=== PATIENT | male | born 1955 | race Caucasian/White ===

== ENCOUNTER 2019-03-29 18:57 | Emergency (ER) | payer MEDICARE ==
[~2019-03-29] VITALS: Ht 172.7 cm; Wt 95.7 kg
--- OUTSIDE RECORDS SUMMARY | 2019-03-29 19:00 | XMS REPORT | Summary of Care ---
Author Author [facility] Organization [facility] Address Unknown Phone Unavailable Care Team Providers Care Log Handling Equipment Operator Name Role Phone Salomón Cardenas MD, JESSICA PCP Vic Chang MD Unavailable Donn Bartlett MD 29 Spencer Ríos MD 28 Supplies, [facility] 34 Lenny Ayon MD Unavailable Unavailable Reason for Referral * Test (Routine) Referred By Contact Referred To Contact Status Reason Specialty Diagnoses / Procedures Salomón Cardenas MD, JESSICA [address] [phone] Pending Cardiology Diagnoses Autonomic neuropathy P rocedures STUDY TILT * Consult, Test & Treat (Routine) Referred By Contact Referred To Contact Status Reason Specialty Diagnoses / Procedures Salomón Cardenas MD, JESSICA [address] [address] [facility] [address] [place] [address]. 10th Floor, [place] [address] Pending Consult, Test, and Hand Surgery / Diagnoses Treat Orthopedic Trigger ring Surgery finger of right hand Pain of finger of right hand P rocedures [facility] OFFICE OUTPATIENT NEW 30 MINUTES * Test (Routine) Referred By Contact Referred To Contact Status Reason Specialty Diagnoses / Procedures Salomón Cardenas MD, JESSICA [address] [address] [facility] [address] [facility]. 8th Floor, [address] [place] [address] Pending Gastroenterology Diagnoses Screen for colon cancer P rocedures OPEN ACCESS COLONOSCOPY [facility] COLONOSCOPY W/BIOPSY SINGLE/MULTIPLE Reason for Visit * Reason Comments Results X-ray Medication Question Encounter Details Care Team Description Date Type Department Salomón Cardenas MD, JESSICA [address] [facility] [address] [place], [place] [id number] Results (X-ray); Medication Question 01/14/2019 Office Visit [facility] General Internal Medicine [address] [facility]. 8th Floor; [address] [place] [address] Allergies No Known Allergiesdocumented as of this encounter (statuses as of 01/14/2019) Medications End Date Status Medication Sig Dispensed Refills Start Date Active Prasugrel HCl (EFFIENT) Take by 0 10 MG TABS mouth daily. Active nitroglycerin (NITROSTAT) Place 0.4 mg 0 0.4 MG SL tablet under the tongue every [address] one tablet under the tongue for angina/chest pain. Repeat every 5 minutes for a total of three pills in 15 minutes for persistent chest pain. Active Insulin Pen Needle 30G X Use daily 100 Each 4 8 MM MISC with Lantus 3 Solostar Active fluticasone (FLONASE) 50 1 [place] by 0 MCG/ACT nasal spray Nasal route 4 daily. Active Cyanocobalamin (VITAMIN Place under 0 B-12) 2500 MCG SUBL the tongue. Active Cholecalciferol (VITAMIN Take by 0 D3) 2000 UNITS CAPS mouth. Active aspirin EC 81 MG tablet Take 81 mg by 0 mouth daily. Active LEVEMIR FLEXTOUCH 100 70 Units 90 mL 3 UNIT/ML SOPNIndications: nightly. 7 Type 2 diabetes mellitus treated with insulin (HCCode) Active Glucose Blood Strips (ONE Check glucose 400 Strip 3 TOUCH ULTRA 4 times 7 TEST)Indications: daily. Dx Uncontrolled type 2 code:E11.9 diabetes mellitus with insulin therapy (HCCode) Active fluocinonide (LIDEX) 0.05 Apply 60 mL 3 % external topically to 8 solutionIndications: affected Dermatitis seborrheica areas 2x/day 3 wks on 1 wk off taper freqency as tolerated Active omeprazole (PRILOSEC) 20 Take 20 mg by 0 MG capsule mouth daily. Active Tamsulosin HCl 0.4 MG Take 0.4 mg 90 Cap 3 CAPSIndications: Benign by mouth 8 prostatic hyperplasia daily. Active glipiZIDE (GLIPIZIDE XL) Take 1 Tab by 90 Tab 3 5 MG CR tablet mouth daily. 8 Active lisinopril (PRINIVIL, Take 20 mg by 0 ZESTRIL) 20 MG tablet mouth daily. Active escitalopram (LEXAPRO) 5 TAKE 1 TABLET 90 Tab 1 MG tabletIndications: BY MOUTH 9 Anxiety EVERY DAY Active ketoconazole (NIZORAL) 2 APPLY TO 120 mL 1 % shampooIndications: SCALP 2-5 9 Dermatitis seborrheica TIMES A WEEK LATHER INTO SCALP LEAVE FOR 5 MINS THEN RINSE OFF Active indomethacin (INDOCIN) 25 TAKE ONE 90 Cap 3 MG capsule CAPSULE BY 9 MOUTH 3 TIMES A DAY Active levothyroxine (SYNTHROID) TAKE 137 MCG 90 Tab 0 137 MCG BY MOUTH 9 tabletIndications: DAILY..CURTES Hypothyroidism (acquired) Y REFILL NO FURTHER REFILL WILL BE GIVEN WITH OUR AN APPOINTMENT Active meloxicam (MOBIC) 15 MG Take 1 Tab by 14 Tab 1 tabletIndications: mouth daily. 9 Chronic midline low back pain without sciatica Active metformin (GLUCOPHAGE) TAKE 2 TABS 360 Tab 1 500 MG tabletIndications: BY MOUTH 2 9 Type 2 diabetes mellitus TIMES DAILY treated with insulin (WITH MEALS). (HCCode) Active rosuvastatin (CRESTOR) 10 Take 10 mg by 0 MG tablet mouth daily. Active Na Sulfate-K Sulfate-Mg Take as 354 mL 1 Sulf (SUPREP BOWEL PREP directed 9 KIT) 17.5-3.13-1.6 GM/177ML SOLNIndications: Screen for colon cancer 01/14/2019 Discontinued docusate sodium (COLACE) Take 50 mg by 0 50 MG capsule mouth two times daily. 01/14/2019 Discontinued rosuvastatin (CRESTOR) 10 Take 1 Tab by 90 Tab 3 MG tablet mouth daily. 2 01/14/2019 Discontinued cyclobenzaprine Take 1 Tab by 30 Tab 1 (FLEXERIL) 10 MG tablet mouth 3 times 8 daily as needed for Muscle spasms. documented as of this encounter (statuses as of 01/14/2019) Active Problems Problem Noted Date DISH (diffuse idiopathic skeletal hyperostosis) 01/14/2019 Last Assessment & Plan: Diagnosis based on x-ray results today. - Discussed results - Discussed starting PT. Pt declined at this time. Will consider in future if needed. Trigger ring finger of right hand 01/14/2019 Last Assessment & Plan: - referral to Ortho Chronic midline low back pain without sciatica 12/18/2018 Last Assessment & Plan: Likely related to muscle strain, but also arthritis a potential component. - Flexeril PRN - discussed possible SEs - Meloxicam 15mg x 14 days, ok to repeat course once if needed, discussed possible SEs. - X-ray today - Discussed increasing physical activity, and provided with home exercises [facility] 04/23/2018 Cerebral infarction due to occlusion of precerebral artery [facility] 04/23/2018 PAD (peripheral artery disease) [facility] 04/23/2018 Acute bilateral low back pain without sciatica 04/23/2018 Last Assessment & Plan: - Limit NSAIDs - Tylenol PRN - Flexeril at night Gait instability 04/23/2018 Last Assessment & Plan: No improvement. - Tilt test ordered, as pt not able to complete due to acute medical issues. Type 2 diabetes mellitus treated with insulin (HCCode) 01/01/2018 Last Assessment & Plan: POC A1c today 8.9. Significant worsening. Compliant with medications. - Referral placed to Endocrine for optimization of diabetic control. - Increase levemir to 75 units for now given hypoglycemic episodes, but will likely need more intensification and optimization in future - Discussed importance of routine follow-up for diabetic control Left shoulder pain 01/01/2018 Last Assessment & Plan: More c/w bursitis - Recommended Tylenol PRN Syncope 08/20/2017 Last Assessment & Plan: Significant improvement. No signs thus far of seizure or cardiac ischemia. - Updated medication list - Pt to f/u with neurology regarding lacunar infarct seen on inpatient imaging. Lacunar infarction 08/20/2017 Last Assessment & Plan: - He will follow up with Neurology Memory deficit 06/26/2017 Last Assessment & Plan: Metabolic vs vascular. - Lab testing today - Consider imaging - Will refer to Neurology once above issues are addressed and if does not resolve with adjustment or SSRI Left-sided headache 06/26/2017 Last Assessment & Plan: Better controlled. Taking Indocin. Would like to lower to twice per day. - Agree with decreasing frequency if remains controlled - Recommend continue improved sleep habits - Follow up with neurology Left hand weakness 06/26/2017 Last Assessment & Plan: Intermittent. Normal today - lab testing today - Neurology referral Adjustment disorder with mixed anxiety and depressed mood 04/17/2017 Last Assessment & Plan: Improved, though stressors still present. - Decrease lexapro to 5mg - f/u in 2-3 months Routine adult health maintenance 03/19/2016 Overview: Last Annual Physical: 04/2018 - Colon Cancer Screening: Colonoscopy ordered, bt not done. He will f/u with Dr. Tobar next week regarding other GI issues. Will revisit at next visit. FIT ordered. - Prostate Cancer Screenin.1 in 2015. Repeat next year - Skin Cancer Prevention: Followed by Dr. Cassidy. - Vaccinations: - Flu: received 04/2018 - Pneumovax: received 04/2018 - Prevnar: discuss at age 66 - Tetanus: received in 2005 - Zoster: will check with pharmcy - AAA Screen: reports that he has never smoked. - HIV Status Testing (<65): negative in 2016 - Hep C Testing (born 1944-65): negative in 2016 Shortness of breath 03/19/2016 Last Assessment & Plan: - Will pursue PFTs given that prior work up was negative. Left hip pain 03/19/2016 Last Assessment & Plan: Suspect arthritis. - X-ray ordered. - Conservative management for now. LLQ pain 12/19/2015 Last Assessment & Plan: Most consistent with benign causes, but will pursue colonoscopy since screening due soon anyway. - Colonoscopy ordered Type 2 diabetes mellitus without retinopathy (HCCode) 11/27/2015 Observation for other specified suspected conditions 11/21/2014 Muscle cramps at night 09/06/2014 Last Assessment & Plan: - Discussed increasing water intake - Discussed stretching - Provided handout for home activities Fatigue 09/06/2014 Last Assessment & Plan: - Improved Hypertrophy of prostate with urinary obstruction and other lower urinary 04/18/2011 tract symptoms (LUTS) Erectile dysfunction 04/18/2011 Male hypogonadism 04/18/2011 Last Assessment & Plan: May be contributor to fatigue. - Recheck Testosterone level. Rotator cuff injury 11/08/2010 Last Assessment & Plan: Controlled with exercises. He does not feel the need to see ortho or PMR at this time GERD 07/21/2006 Obstructive sleep apnea 06/11/2005 Overview: CPAP Hypercholesterolemia Essential hypertension, benign Last Assessment & Plan: Controlled today - Adjusted med list Obesity Last Assessment & Plan: - Discussed improved exercise regimen for weight loss MANISH (obstructive sleep apnea) Last Assessment & Plan: 2004 at [employer]- AHI 43, SaO2 zhane 84%. Titrated to CPAP 13, but AHI at this pressure reported to be 14. 9/13- Re-titration- prescribed Autopap 02-16 with A flex -3 09/15- down load data is from 06/17-09/14 (his SD card had popped out)- Used it 52% of nights. Av use 6 hours. 90th percentile pressure 11.3 SD card replaced properly into his CPAP machine Pt encouraged to use CPAP daily Things we can optimize: - Would like to tray another nasal mask - Nasal congestion- Flonase is helping documented as of this encounter (statuses as of 01/14/2019) Resolved Problems Problem Noted Date Resolved Date Tachycardia 03/19/2016 04/23/2018 Last Assessment & Plan: - EKG today DM2 (diabetes mellitus, type 2) (HCCode) 12/01/2011 02/18/2013 Compression fracture 10/03/2011 10/14/2011 Lumbar strain 10/01/2011 10/14/2011 DIABETES MELLITUS, MILD 01/18/2010 Overview: A1c 6.4 documented as of this encounter (statuses as of 01/14/2019) Immunizations Name Administration Dates Next Due Influenza (Preservative 02/18/2013 Free) Influenza Intradermal 03/19/2016 Influenza Quad-PF 01/14/2019, 04/23/2018, 04/17/2017 Pneumococcal 04/23/2018, 08/29/2005 Polysaccharide Td 08/29/2005 documented as of this encounter Social History Date Tobacco Use Types Packs/Day Years Used Never Smoker Smokeless Tobacco: Never Used Drinks/Week oz/Week Comments Alcohol Use beer once a month Yes Sex Assigned at Date Recorded Not on file Industry Job Start Date Occupation Not on file Not on file Not on file Travel End Travel History Travel Start No recent travel history available. documented as of this encounter Last Filed Vital Signs Reading Time Taken Comments Vital Sign 134/64 01/14/2019 3:06 PM CDT Blood Pressure 73 01/14/2019 3:06 PM CDT Pulse 36.7 C (98.1 F) 01/14/2019 3:06 PM CDT Temperature 16 01/14/2019 3:06 PM CDT Respiratory Rate 96% 01/14/2019 3:06 PM CDT Oxygen Saturation - - Inhaled Oxygen Concentration 98.7 kg (217 lb 9.6 oz) 01/14/2019 3:06 PM CDT Weight 172.7 cm (5' 8") 01/14/2019 3:06 PM CDT Height 33.09 01/14/2019 3:06 PM CDT Body Mass Index documented in this encounter Patient Instructions * Patient Instructions* Salomón Cardenas MD, JESSICA - 01/14/2019 3:00 PM CDT 1) Please let me know if you would like to pursue Physical Therapy for your back pain 2) Colonoscopy Instructions Please call [phone] to schedule your procedure and have this List with you. Day Date ArrivalTime Procedure Time Locations [facility] [address] [facility] 4th Floor [facility] [address] [facility] [address] [facility] 9th [place] [address] [facility] [address] [facility] 1st [place] [address] [facility] [address]th [place] [address] Important Phone Numbers Before calling, please see the Frequently Asked Germánio ns below. [facility] Insurance questions: [phone] [facility] Insurance questions: [phone], option 5 For prep information: [phone] To reschedule/cancel your procedure: [phone] After hour questions, including prep related: [phone] Ananda Bucio COLONOSCOPY TO DO LIST HOLD Anticoagulants and Antiplatelet Medications To reduce risk of bleeding, 'blood thinning' medications need to be held for the upcoming procedure. Look for your prescription below and hold for the recommen ded number of days. Please check with your doctor BEFORE stopping any medications Note: You may continue to take baby aspirin (81mg) until the day of your procedu re Manage through you doctor or anticoagulation clinic Warfarin (Coumadin) Enoxaparin (Lovenox) STOP 7 days BEFORE the procedure Aspirin Aspirin/Dipyridamole (Aggrenox) Clopidogrel (Plavix) Pasugrel (Effient) Ticlopidine (Ticlid) Ticagrelor (Brilinta) STOP 3 days BEFORE the procedure Apixaban (Eliquis) Dabigatran (Pradaxa) Rivaroaxaban (Xarelto) STOP 2 days BEFORE the procedure Fondaparinux (Arixtra) Cilostazol (Pletal) 7 DAYS BEFORE THE PROCEDURE ? If your provider has instructed, obtain cardiac clearance from your cardiologi st and confirm that clearance has been faxed to our office ( ). ? If your provider has instructed, please stop use of medications that can thin your blood - see above ? Sign up for [facility] [email or web address] All results including biopsy and / or polyp(s) removed will be communicated via [email or web address]. ? building insulation supervisor your bowel cleansing preparation from your pharmacy. ? Arrange transportation for the day of your procedure an escort is needed a s you will be sedated for the exam. THE DAY BEFORE THE PROCEDURE ? Please ignore the gnore the instructions provided with your bowel preparation ? Follow the steps in the Bowel Prep Instruction section below for your prescrib ed prep. ? You are restricted to ONLY CLEAR LIQUIDS. No solid foods or food with seeds/nu ts. No dairy and no liquids that are red, orange, or purple in color. This inclu belia breakfast. ? Examples of acceptable foods / liquids are plain broth, jello, popsicles, tea, clear juices and carbonated drinks. No vegetable soup. THE DAY OF THE PROCEDURE ? You cannot consume any food or drink (including water) ? You may brush your teeth and rinse your mouth. ? Take all medications as directed by your doctor with a small sip of water. ? Bring your identification card, insurance card, and method of payment. ? Leave all other valuables at home. ? You CANNOT drive yourself from the procedure. Use of bus, taxi or Uber without an escort is not allowed for safety reasons. ? Arrive for check-in at least 90 minutes before your procedure time. Allow jocelyn tional time for parking and navigation to the procedure location. BOWEL PREP INSTRUCTIONS Follow the instructions below for the bowel prep you were prescribed. Do NOT fo llow the instructions on the prep packaging. Please call [phone] if you murrell ve any questions about either prep. SUPREP THE DAY BEFORE YOUR PROCEDURE AT 6:00PM ? Pour ONE 6 ounce bottle of Suprep liquid into the 16 ounce mixing container in the kit ? Add cool drinking water to the 16 ounce line on the container with the mix. St ir. ? Drink all the liquid in the container ? You must drink TWO more 16 ounce containers (total of 32 ounces) of water over the next hour FOUR HOURS BEFORE YOU LEAVE YOUR HOME FOR THE PROCEDURE ? Pour ONE 6 ounce bottle of Suprep liquid into the 16 ounce mixing container in the kit ? Add cool drinking water to the 16 ounce line on the container with the mix. St ir. ? Drink all the liquid in the container ? You must drink TWO more 16 ounce containers (total of 32 ounces) of water over the next hour GOLYTELY THE DAY BEFORE YOUR PROCEDURE AT 6:00PM ? Add cold water to fill the gallon container. You may flavor the gallon with cr ystal light as long as it is not red/purple in color. ? Drink of the gallon (2 liters) over 2 hours. ? Drink the remaining half gallon (2 liters) over 90 minutes. FOUR HOURS BEFORE YOU LEAVE YOUR HOME FOR THE PROCEDURE ? Drink the remaining half gallon (2 liters) over 90 minutes. Colonoscopy Frequently Asked Questions What is a colonoscopy? A colonoscopy is a procedure that involves introducing a thin flexible tube with a camera to evaluate the colon for abnormalities. A Colonoscopy is considered the best option to screen for colon cancer and to re move colon polyps. A Colonoscopy is performed under sedation. How do I schedule a colonoscopy? Please call [phone] to schedule your procedure. Please be sure to check bef orehand with your designated trackless trolley driver (use of taxis, uber, lyft, etc are not permi tted) for possible dates. How much will the colonoscopy cost met? You will receive a call from the insurance department of [facility] AND [facility] ([facility]) in 10 to 14 business days AFTER you schedule your colonoscopy if your paymen t is above $100. What can I eat the day before the colonoscopy? The entire day before the procedure (including breakfast), you are restricted to clear liquids. This means nothing that has any solid residue. Liquids that are acceptable are water, plain/strained broth, jello, popsicles, and clear carbonat ed drinks. Avoid any liquids that are red/orange in color. Milk products are not allowed. P cal do NOT eat any vegetables, seeds, and nuts as these will cause poor visual ization of the colon. Preparation is a critically important part of the exam. If your bowel is not nolberto quately cleaned out before the exam, your doctor will not be able to identify po lyps and may request a repeat examination. Tips for drinking the bowel preparation Refrigerating the mixed liquid bowel preparation may help you ingest easier. Do not force yourself to drink all the fluid at once. Pace yourself. Try hard/tart candies or lemon to help with the taste. What if I experience nausea or vomit the bowel preparation? Nausea is common, do not panic if this occurs. Stop drinking the solution for 45 to 60 minutes, and then resume. Pace yourself slower when drinking the bowel pr eparation. If vomiting continues for several hours please call your doctor. What should I wear for the day of the procedure? Please dress comfortably. You will be asked to change into a hospital gown and r emove all undergarments. What should I bring with me the day of the procedure? Please bring your identification card, insurance card, and method of payment. Pl ease do not bring any other valuables with you. [facility] (or [facility] the procedure is performed) will NOT be responsible for your v aluable items. Can I take my medications the day of the procedure? You should take all your medications (except those listed as specified in the in structions) with small sips of water. Please refrain from drinking excessive flu id while taking your medications as this will place you at risk for anesthesia c omplications. How long will the process take? A typical procedure usually takes 30 to 45 minutes. However, there are many aspe cts to ensuring your health and safety. Time is needed for registration, intake assessment, changing, the procedure, and recovery. Please plan to be at the [facility] for at least 3-4 hours. What happens if a polyp is found in the colon? During the course of the colonoscopy, polyp(s) may be found. Polyps are abnormal growths of tissue, which vary in size. Although most polyps are benign (noncanc erous), a small percentage contain an area of cancer in them or may develop into cancer. They are usually removed during the procedure. Pathology results will be sent via [facility] [employer]. When will I receive results? You will receive a copy of the procedure report on the same day in your discharg e package. If biopsies were taken, they will be sent via [facility] 7 business days after your procedure. What symptoms might occur after the colonoscopy? Most patients do not experience any symptoms. Some may experience excessive gas, abdominal pain/cramping, and/or slight rectal bleeding after the procedure. The se symptoms usually resolve within a day with no need to be alarmed. If you expe rience excessive bleeding, fever, or severe symptoms please call the gastroenter ology office or report to the nearest emergency room for evaluation. What can I eat after the procedure? We suggest that the first meal be a light meal as you may have residual effects of anesthesia. However, there are no specific dietary exclusions unless you are instructed by your provider. What can I do after the procedure? Most procedures are done using anesthesia. You will not be allowed to drive afte r the procedure. It is not advised to make any important decisions the day of yo ur procedure. Please make sure you have someone to drive you home after the proc edure. The use of taxis, UBER, and Lyft are not permitted by our policies. Self- arranged medical transportation is acceptable. We recommend you plan on taking it easy for the remainder of the day. There are no restrictions the following day, including driving C DT documented in this encounter Progress Notes * Salomón Cardenas MD, JESSICA - 01/14/2019 3:00 PM CDT Chief Complaint Patient presents with Results X-ray Medication Question History of Present Illness: Mr. Alaniz is a 63 y.o. year old male who presents for follow up of: At last visits, discussed: Back pain X-ray showed DISH. Reports significant improvement with Meloxicam Finger "Sticking" Reports lack of improvement. Same level of pain. Worse when he tries to extend h is hand. "Pops" into place on extension of 4th finger. Reports meloxicam had donna y minimal improvement on his hand. Gait abnormalities Unchanged. Has continued to have some instability recently. Seen by neurology in the past about this, but was unable complete testing. Diabetes Under better control. Compliant with medications. Following with endocrine. Past Medical History: Diagnosis Date BPH (benign prostatic hyperplasia) Coronary artery disease 4 total stents, Dr. Bartlett Diabetes mellitus (HCCode) GERD (gastroesophageal reflux disease) Hearing loss bilateral; ? noise induced Hyperlipemia Hypertension Hypogonadism male Hypothyroidism MANISH (obstructive sleep apnea) Rotator cuff tear, left Dr. Walter Addison, Ortho- PT Family History Problem Relation Name Age of Onset Glaucoma Mother Breast Cancer Mother Cancer Father Other (throat cancer) Father Epilepsy Brother Social History: Tobacco: He reports that he has never smoked. He has never used smokeless tobac co. Alcohol: He reports that he drinks alcohol. Drug Use: He reports that he does not use drugs. Past Surgical History: Procedure Laterality Date HX ANUS SURGERY 2003 For fistula HX CORONARY ANGIOPLASTY WITH STENT PLACEMENT 2013 Dr. Bartlett Current Outpatient Medications on File Prior to Visit Medication Sig Dispense Refill aspirin EC 81 MG tablet Take 81 mg by mouth daily. Cholecalciferol (VITAMIN D3) 2000 UNITS CAPS Take by mouth. Cyanocobalamin (VITAMIN B-12) [address] under the tongue. cyclobenzaprine (FLEXERIL) 10 MG tablet Take 1 Tab by mouth 3 times daily as needed for Muscle spasms. (Patient not taking: Reported on 12/17/2018) 30 Tab 1 docusate sodium (COLACE) 50 MG capsule Take 50 mg by mouth two times daily. escitalopram (LEXAPRO) 5 MG tablet TAKE 1 TABLET BY MOUTH EVERY DAY 90 Tab 1 fluocinonide (LIDEX) 0.05 % external solution Apply topically to affected ar eas 2x/day 3 wks on 1 wk off taper freqency as tolerated 60 mL 3 fluticasone (FLONASE) 50 MCG/ACT nasal spray 1 [place] by Nasal route daily. glipiZIDE (GLIPIZIDE XL) 5 MG CR tablet Take 1 Tab by mouth daily. 90 Tab 3 Glucose Blood Strips (ONE TOUCH ULTRA TEST) Check glucose 4 times daily. Dx code:E11.9 400 Strip 3 indomethacin (INDOCIN) 25 MG capsule TAKE ONE CAPSULE BY MOUTH 3 TIMES A DAY (Patient not taking: Reported on 12/17/2018) 90 Cap 3 Insulin Pen Needle 30G X 8 MM MISC Use daily with Lantus Solostar 100 Each 4 ketoconazole (NIZORAL) 2 % shampoo APPLY TO SCALP 2-5 TIMES A WEEK LATHER IN TO SCALP LEAVE FOR 5 MINS THEN RINSE OFF 120 mL 1 LEVEMIR FLEXTOUCH 100 UNIT/ML SOPN 70 Units nightly. (Patient taking differe ntly: 75 Units nightly.) 90 mL 3 levothyroxine (SYNTHROID) 137 MCG tablet TAKE 137 MCG BY MOUTH DAILY..CURTES Y REFILL NO FURTHER REFILL WILL BE GIVEN WITH OUR AN APPOINTMENT 90 Tab 0 lisinopril (PRINIVIL, ZESTRIL) 20 MG tablet Take 20 mg by mouth daily. meloxicam (MOBIC) 15 MG tablet Take 1 Tab by mouth daily. 14 Tab 1 metformin (GLUCOPHAGE) 500 MG tablet TAKE 2 TABS BY MOUTH 2 TIMES DAILY (WIT H MEALS). 360 Tab 1 nitroglycerin (NITROSTAT) 0.[address] 0.4 mg under the tongue sarah ry 5 minutes as needed. Place one tablet under the tongue for angina/chest pain. Repeat every 5 minutes for a total of three pills in 15 minutes for persistent chest pain. omeprazole (PRILOSEC) 20 MG capsule Take 20 mg by mouth daily. Prasugrel HCl (EFFIENT) 10 MG TABS Take by mouth daily. rosuvastatin (CRESTOR) 10 MG tablet Take 1 Tab by mouth daily. 90 Tab 3 Tamsulosin HCl 0.4 MG CAPS Take 0.4 mg by mouth daily. 90 Cap 3 No current facility-administered medications on file prior to visit. Review of Systems Constitutional: Negative for chills, fever and weight loss. HENT: Negative for congestion and sinus pain. Eyes: Negative for blurred vision, double vision, pain and redness. Respiratory: Negative for cough and wheezing. Cardiovascular: Negative for chest pain, palpitations and leg swelling. Gastrointestinal: Negative for abdominal pain, constipation, diarrhea, nausea an d vomiting. Genitourinary: Negative for dysuria, frequency and hematuria. Skin: Negative for rash. Neurological: Negative for tremors, focal weakness and headaches. Endo/Heme/Allergies: Does not bruise/bleed easily. Psychiatric/Behavioral: Negative for depression. The patient is not nervous/anxi ous. Vitals: 01/14/19 1506 BP: 134/64 BP Location: left arm Patient Position: Sitting Cuff Size: large Pulse: 73 Resp: 16 Temp: 98.1 F (36.7 C) TempSrc: Oral SpO2: 96% Weight: 217 lb 9.6 oz (98.7 kg) Height: 5' 8" (1.727 m) Body mass index is 33.09 kg/m. Physical Exam Constitutional: He is oriented to person, place, and time and well-developed, we ll-nourished, and in no distress. No distress. HENT: Head: Normocephalic. Eyes: Conjunctivae and EOM are normal. Neck: Normal range of motion. Neck supple. Pulmonary/Chest: Effort normal. No respiratory distress. Musculoskeletal: Normal range of motion. He exhibits no edema. Neurological: He is alert and oriented to person, place, and time. No cranial ne rve deficit. Gait normal. Coordination normal. Skin: Skin is warm and dry. No erythema. Psychiatric: Mood, memory, affect and judgment normal. Assessment Gait instability No improvement. - Tilt test ordered, as pt not able to complete due to acute medical issues. DISH (diffuse idiopathic skeletal hyperostosis) Diagnosis based on x-ray results today. - Discussed results - Discussed starting PT. Pt declined at this time. Will consider in future if ne eded. Trigger ring finger of right hand - referral to Ortho Problem [facility] (Diffuse Idiopathic Skeletal Hyperostosis) Trigger Ring Finger of Right Hand Gait Instability Plan (and orders) Orders Placed This Encounter Procedures Open Access Colonoscopy Fluzone Quad - Preservative FREE AMB REFERRAL TO HAND SURGERY [facility] Study tilt C DT documented in this encounter Plan of Treatment Care Team Description Date Type Specialty Lola Montenegro MD [address] [place] [address] [address] [place], [place] [id number] 02/23/2019 Office Visit Ophthalmology Junior Hutchinson MD [address] [facility] [address] [place], [place] [id number] 04/01/2019 Office Visit Endocrinology Renae Lakhani RN 05/03/2019 Office Visit General Internal Medicine Priscilla Travis MD [address] [facility] [address] [place], [place] [id number] 06/08/2019 Office Visit Sleep Center Order Schedule Name Type Priority Associated Diagnoses 1 Occurrences starting 01/14/2019 until 07/15/2019 OPEN ACCESS COLONOSCOPY Procedures Routine Screen for colon cancer 1 Occurrences starting 01/14/2019 until 01/15/2020 STUDY TILT Electrophysiolo Routine Autonomic neuropathy gy Order Schedule Name Type Priority Associated Diagnoses Ordered: 01/14/2019 AMB REF TO HAND SURGERY Outpatient Routine Trigger ring finger of [facility] Referral right hand Pain of finger of right hand Health Maintenance Due Date Last Done Comments COLON CANCER SCREENIN1956 COLONOSCOPY TETANUS SHOT (ADULT) 08/30/2015 08/29/2005 MEDICARE AWV 04/17/2018 04/17/2017 FLU VACCINE > 6 MONTHS 12/02/2018 04/23/2018, 04/17/2017, 03/19/2016, Additional history exists ANNUAL DIABETIC 03/10/2019 03/10/2018, 03/10/2018, 11/27/2015, RETINOPATHY SCREENING Additional history exists ANNUAL DIABETIC FOOT EXAM 04/23/2019 04/23/2018, 01/01/2018, 12/19/2015 BMI FOLLOW UP PLAN 04/23/2019 04/23/2018 A1C TESTING EVERY 6 06/17/2019 12/15/2018, 04/16/2018, 01/01/2018, MONTHS Additional history exists HEPATITIS C SCREENING Completed 03/26/2016 HIV SCREENING Completed 03/26/2016 documented as of this encounter Results Not on filedocumented in this encounter Visit Diagnoses Diagnosis DISH (diffuse idiopathic skeletal hyperostosis) - Primary Ankylosing vertebral hyperostosis Trigger ring finger of right hand Trigger finger (acquired) Screen for colon cancer Special screening for malignant neoplasms, colon Autonomic neuropathy Unspecified disorder of autonomic nervous system Pain of finger of right hand Pain in limb Need for influenza vaccination Need for prophylactic vaccination and inoculation against influenza Gait instability Abnormality of gait documented in this encounter Insurance Type Payer Benefit Subscriber ID Effective Phone Address Plan / Dates Group Medicare MEDICARE MEDICARE xxxxxxxxxxx 2013- [address] Present [id number] [place] [address] documented as of this encounter Advance Directives Patient Line Out Worker Explanation Type Date Recorded Advance Directives and Living Will Power of Marketing Rep
--- OUTSIDE RECORDS SUMMARY | 2019-03-29 19:00 | XMS REPORT | Summary of Care ---
Author Author [facility] Organization [facility] Address Unknown Phone Unavailable Care Team Providers Care Diesel Engine Inspector Name Role Phone Salomón Cardenas MD, JESSICA PCP Vic Chang MD Unavailable Donn Bartlett MD [address] Spencer Ríos MD 28 Supplies, [facility] 34 Lenny Ayon MD Unavailable Unavailable Reason for Visit * Reason Comments Hand Injury * Consult, Test & Treat (Routine) Referred By Contact Referred To Contact Status Reason Specialty Diagnoses / Procedures Salomón Cardenas MD, JESSICA [address] [facility] [address] [place] [address] [facility] [address], [facility] [address] [place] [address] Authorization Consult, Test, and Orthopedic Diagnoses Not Needed Treat Surgery Trigger ring finger of right hand Pain of finger of right hand M65.341 (ICD-10-CM) - Trigger ring finger of right hand M79.644 (ICD-10-CM) - Pain of finger of right hand P rocedures [place] OFFICE OUTPATIENT NEW 30 MINUTES Encounter Details Care Team Description Date Type Department Wayne Salazar MD [address] [facility] [address] [place] [address] [phone] Hand Injury 02/03/2019 Office Visit [facility] Orthopedic Surgery [address] [facility]. [address], [place] [address] Allergies No Known Allergiesdocumented as of this encounter (statuses as of 02/03/2019) Medications End Date Status Medication Sig Dispensed [...] 3 Solostar Active fluticasone (FLONASE) 50 1 [place] by 0 MCG/ACT nasal spray Nasal route [...] by 0 MG capsule mouth daily. Active glipiZIDE (GLIPIZIDE XL) Take 1 [...] 17.5-3.13-1.6 GM/177ML SOLNIndications: Screen for colon cancer Active Tamsulosin HCl 0.4 MG TAKE ONE 90 Cap 3 CAPSIndications: Benign CAPSULE BY 9 prostatic hyperplasia MOUTH EVERY DAY AT BEDTIME documented as of this encounter (statuses as of 02/03/2019) Active Problems Problem Noted Date DISH (diffuse [...] activity, and provided with home exercises Dysautonomia (HCCode) 04/23/2018 Cerebral infarction due to occlusion of precerebral artery (HCCode) 04/23/2018 PAD [facility]peripheral artery disease) [facility] 04/23/2018 Acute bilateral low back pain without sciatica 04/23/2018 Last Assessment & Plan: - Limit NSAIDs - Tylenol PRN - Flexeril at night Gait instability 04/23/2018 Last Assessment & Plan: No improvement. - Tilt test ordered, as pt not able to complete due to acute medical issues. Type 2 diabetes mellitus treated with insulin ([facility] 01/01/2018 Last Assessment & Plan: POC A1c [...] infarct seen on inpatient imaging. Lacunar infarction ([facility]) 08/20/2017 Last Assessment & Plan: - He [...] - Skin Cancer Prevention: Followed by Dr. Khanh. - Vaccinations: - Flu: received 04/2018 - [...] apnea) Last Assessment & Plan: 2004 at [facility]- AHI 43, SaO2 zhane 84%. Titrated to CPAP 13, but AHI at this pressure reported to be 14. 9/13- Re-titration- prescribed Autopap - with A flex -3 09/15- down load [...] as of this encounter (statuses as of 02/03/2019) Resolved Problems Problem Noted Date Resolved Date Tachycardia 03/19/2016 04/23/2018 Last Assessment & Plan: - EKG today DM2 (diabetes mellitus, type 2) (HCCode) 12/01/2011 02/18/2013 Compression fracture 10/03/2011 10/14/2011 Lumbar strain 10/01/2011 10/14/2011 DIABETES MELLITUS, MILD 01/18/2010 Overview: A1c 6.4 documented as of this encounter (statuses as of 02/03/2019) Immunizations Name Administration Dates Next Due Influenza [...] Signs Reading Time Taken Comments Vital Sign 145/86 02/03/2019 9:35 AM CDT Blood Pressure 71 02/03/2019 9:35 AM CDT Pulse - - Temperature - - Respiratory Rate - - Oxygen Saturation - - Inhaled Oxygen Concentration 98.4 kg (217 lb) 02/03/2019 9:35 AM CDT Weight 172.7 cm (5' 8") 02/03/2019 9:35 AM CDT Height 32.99 02/03/2019 9:35 AM CDT Body Mass Index documented in this encounter Progress Notes * Wayne Salazar MD - 02/03/2019 9:30 AM CDT History of Present Illness Stas Alaniz is a 64 y.o. , male here for evaluation of his R RF. Patient reports that it started 3mo ago when he noti pratima that his finger would get stuck when he wakes up in the morning. He reports that it clicks when he uses it and is associated with pain. Denies any tingling, numbness, or trauma. Past Medical History has a past medical history of BPH (benign prostatic hype rplasia), Coronary artery disease, Diabetes mellitus (HCCode), GERD (gastroesoph ageal reflux disease), Hearing loss, Hyperlipemia, Hypertension, Hypogonadism ma le, Hypothyroidism, MANISH (obstructive sleep apnea), and Rotator cuff tear, left. Hospitalizations and Surgeries: has a past surgical history that includes HX A nus surgery (2003) and HX Coronary angioplasty with stent (2013). Medical Problems: Denies cardiovascular, pulmonary, renal or hepatic disease. No history of HIV/AIDS Medicines: Current Outpatient Medications: aspirin EC 81 MG tablet, Take 81 mg by mouth daily., Disp: , Rfl: Cholecalciferol (VITAMIN D3) 2000 UNITS CAPS, Take by mouth., Disp: , Rfl: Cyanocobalamin (VITAMIN B-12) 2500 [address]CG SUBL, Place under the tongue., Disp : , Rfl: escitalopram (LEXAPRO) 5 MG tablet, TAKE 1 TABLET BY MOUTH EVERY DAY, Disp: 90 Tab, Rfl: 1 fluocinonide (LIDEX) 0.05 % external solution, Apply topically to affected areas 2x/day 3 wks on 1 wk off taper freqency as tolerated, Disp: 60 mL, Rfl: 3 fluticasone (FLONASE) 50 MCG/ACT nasal spray, 1 [place] by Nasal route daily. , Disp: , Rfl: glipiZIDE (GLIPIZIDE XL) 5 MG CR tablet, Take 1 Tab by mouth daily., Disp: 90 Tab, Rfl: 3 Glucose Blood Strips (ONE TOUCH ULTRA TEST), Check glucose 4 times daily. D x code:E11.9, Disp: 400 Strip, Rfl: 3 indomethacin (INDOCIN) 25 MG capsule, TAKE ONE CAPSULE BY MOUTH 3 TIMES A D AY (Patient not taking: Reported on 12/17/2018), Disp: 90 Cap, Rfl: 3 Insulin Pen Needle 30G X 8 MM MISC, Use daily with Lantus Solostar, Disp: 1 00 Each, Rfl: 4 ketoconazole (NIZORAL) 2 % shampoo, APPLY TO SCALP 2-5 TIMES A WEEK LATHER INTO SCALP LEAVE FOR 5 MINS THEN RINSE OFF, Disp: 120 mL, Rfl: 1 LEVEMIR FLEXTOUCH 100 UNIT/ML SOPN, 70 Units nightly. (Patient taking diffe rently: 75 Units nightly.), Disp: 90 mL, Rfl: 3 levothyroxine (SYNTHROID) 137 MCG tablet, TAKE 137 MCG BY MOUTH DAILY..KRISTIN ESY REFILL NO FURTHER REFILL WILL BE GIVEN WITH OUR AN APPOINTMENT, Disp: 90 Tab , Rfl: 0 lisinopril (PRINIVIL, ZESTRIL) 20 MG tablet, Take 20 mg by mouth daily., Di sp: , Rfl: meloxicam (MOBIC) 15 MG tablet, Take 1 Tab by mouth daily., Disp: 14 Tab, R fl: 1 metformin (GLUCOPHAGE) 500 MG tablet, TAKE 2 TABS BY MOUTH 2 TIMES DAILY (W ITH MEALS)., Disp: 360 Tab, Rfl: 1 Na Sulfate-K Sulfate-Mg Sulf (SUPREP BOWEL PREP KIT) 17.5-3.13-1.6 GM/177ML SOLN, Take as directed, Disp: 354 mL, Rfl: 1 nitroglycerin (NITROSTAT) 0.4 MG SL tablet, Place 0.4 mg under the tongue e very 5 minutes as needed[address] one tablet under the tongue for angina/chest skyler n. Repeat every 5 minutes for a total of three pills in 15 minutes for persisten t chest pain. , Disp: , Rfl: omeprazole (PRILOSEC) 20 MG capsule, Take 20 mg by mouth daily., Disp: , Rf l: Prasugrel HCl (EFFIENT) 10 MG TABS, Take by mouth daily., Disp: , Rfl: rosuvastatin (CRESTOR) 10 MG tablet, Take 10 mg by mouth daily., Disp: , Rf l: Tamsulosin HCl 0.4 MG CAPS, TAKE ONE CAPSULE BY MOUTH EVERY DAY AT BEDTIME, Disp: 90 Cap, Rfl: 3 Allergies: No Known Allergies Review of Systems: Denies cardiovascular, pulmonary renal or hepatic complaints. No history of bleeding disorders. Social History: Does not drink or smoke. No history of illicit drug use. No h istory of HIV or blood transfusions. Family History: Noncontributory Physical Examination: General: Well-developed, well-nourished male in no acute distress. Vital Signs: Stable Examination: Left upper extremity General: Unremarkable, without swelling or scars. Shoulder: Full active range of motion without tenderness. Elbow: There is full active range of motion without tenderness. No swelling, cr epitus or epicondylar tenderness. Forearm: There is full pronation and supination without pain. Wrist: There is full active range of motion without tenderness, crepitus or ins tability. Hand: There is no clubbing, cyanosis or edema. Triggering of L RF noted assoc with swelling. The thenar and hypothenar muscles are functioning at 5/5. There is full active range of motion in all digits, with some limitation in the RF req passive. No ext tendon subluxation. X-Ray Left hand 3 views was reviewed by me today No bony or soft tissue abnorma lities. Impression: L RF trigger finger Recommendations and Plan: --> Discussed the natural history and range of treatment options including nonop to surgical to the patient. --> Given patient's concern about elevated glucose s/p injection, patient opted for using a night splint --> Patient understand the management of this dz is symptomatic. He will return if the splint does not achieve enough relief. At that point, we will consider an injection versus surgery. Patient verbalized understanding and agrees with the treatment plan documented in this encounter Plan of Treatment Care Team Description Date Type Specialty Lola Montenegro MD [address] [place] [address] [address] [place] [address] 02/23/2019 Office Visit Ophthalmology Junior Hutchinson MD [address] [facility] [address] [place] [address] 04/01/2019 Office Visit Endocrinology Renae Lakhani RN 05/03/2019 Office Visit General Internal Medicine Priscilla Travis MD [address] [facility] [address] [place], [place] [id number] 06/08/2019 Office Visit Sleep Center Date/Time Name Type Priority Associated Diagnoses 02/03/2019 9:41 AM CDT XR FINGER RIGHT < 2 VW Imaging Routine Finger pain, right Order Schedule Name Type Priority Associated Diagnoses 1 Occurrences starting 02/03/2019 until 02/04/2020 XR FINGER RIGHT < 2 VW Imaging Routine Finger pain, right Ordered: 02/03/2019 ORT - XR FINGER RIGHT 2V [place] Charge Routine Finger pain, right ( CHARGE ONLY) Health Maintenance Due Date Last Done Comments COLON CANCER SCREENIN1956 COLONOSCOPY TETANUS SHOT (ADULT) 08/30/2015 08/29/2005 MEDICARE AWV 04/17/2018 04/17/2017 ANNUAL DIABETIC 03/10/2019 03/10/2018, 03/10/2018, 11/27/2015, RETINOPATHY SCREENING Additional history exists ANNUAL DIABETIC FOOT EXAM 04/23/2019 04/23/2018, 01/01/2018, 12/19/2015 BMI FOLLOW UP PLAN 04/23/2019 04/23/2018 A1C TESTING EVERY 6 06/17/2019 12/15/2018, 04/16/2018, 01/01/2018, MONTHS Additional history exists HEPATITIS C SCREENING Completed 03/26/2016 HIV SCREENING Completed 03/26/2016 FLU VACCINE > 6 MONTHS Completed 01/14/2019, 04/23/2018, 04/17/2017, Additional history exists documented as of this encounter Results Not on filedocumented in this encounter Visit Diagnoses Diagnosis Finger pain, right - Primary Pain in limb Trigger finger, right ring finger documented in this encounter Insurance Type Payer Benefit Subscriber ID Effective Phone Address Plan / Dates Group Medicare MEDICARE MEDICARE xxxxxxxxxxx 2013- [address] Present [id number] [place] [address] documented as of this encounter Advance Directives Patient Loan Underwriter Explanation Type Date Recorded Advance Directives and Living Will Power of Sanding Line Operator
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
--- OUTSIDE RECORDS SUMMARY | 2019-03-29 19:01 | XMS REPORT | Summary of Care ---
Author Author [facility] Organization [facility] Address Unknown Phone Unavailable Care Team Providers Care Electronic Development Technician Name Role Phone Salomón Cardenas MD, JESSICA PCP Vic Chang MD Unavailable Donn Bartlett MD 29 Spencer Ríos MD 28 Supplies, [employer] 34 Lenny Ayon MD Unavailable Unavailable Nicki Ribera [place] 52 Unavailable Reason for Visit * Reason Comments Glaucoma Narrow angle glaucoma suspect OU * Consult, Test & Treat (Routine) Referred By Contact Referred To Contact Status Reason Specialty Diagnoses / Procedures Lola Montenegro MD [address] [address] Lola Montenegro MD [address] [address] Authorization Ophth Glaucoma Diagnoses Not Needed Specialist / eov annual Ophthalmology diabetic adv. no refraction P rocedures EOV W HVF Encounter Details Care Team Description Date Type Department Lola Montenegro MD [address] [phone] Glaucoma (Narrow angle glaucoma suspect OU) 02/23/2019 Office Visit [facility] Ophthalmology [address] [place] [phone] Allergies No Known Allergiesdocumented as of this encounter (statuses as of 02/23/2019) Medications End Date Status Medication Sig Dispensed [...] 3 Solostar Active fluticasone (FLONASE) 50 1 [facility] by 0 MCG/ACT nasal spray Nasal route [...] Type 2 diabetes mellitus [facility] with insulin [facility] Active Glucose Blood Strips (ONE Check glucose 400 Strip 3 TOUCH ULTRA 4 times 7 TEST)Indications: daily. Dx Uncontrolled type 2 code:E11.9 diabetes mellitus with insulin therapy ([facility]) Active fluocinonide (LIDEX) 0.05 Apply 60 mL [...] as of this encounter (statuses as of 02/23/2019) Active Problems Problem Noted Date DISH (diffuse [...] artery (H[facility]ode) 04/23/2018 PAD (peripheral artery disease) (HCCode) 04/23/2018 Acute bilateral low back pain without [...] infarct seen on inpatient imaging. Lacunar infarction [facility]) 08/20/2017 Last Assessment & Plan: - He [...] apnea) Last Assessment & Plan: 2005 at [place]- AHI 43, SaO2 zhane 84%. Titrated to [...] as of this encounter (statuses as of 02/23/2019) Resolved Problems Problem Noted Date Resolved Date Tachycardia 03/19/2016 04/23/2018 Last Assessment & Plan: - EKG today DM2 (diabetes mellitus, type 2) (HCCode) 12/01/2011 02/18/2013 Compression fracture 10/03/2011 10/14/2011 Lumbar strain 10/01/2011 10/14/2011 DIABETES MELLITUS, MILD 01/18/2010 Overview: A1c 6.4 documented as of this encounter (statuses as of 02/23/2019) Immunizations Name Administration Dates Next Due Influenza [...] of this encounter Last Filed Vital Signs Not on filedocumented in this encounter Progress Notes * Lola Montenegro MD - 02/23/2019 9:50 AM CDT Tonometry (Applanation, 10:27 AM) Right Left Pressure 17 18 VF Interpretation 02/2019 OD OS Reliability Good Good Defect Scatter 2018 MD: +0.93 Scatter 2018 MD: +0.15 Progression Stable 2017 MD: -0.88 Stable 2017 MD: -0.37 OCT Glaucoma Interpretation 02/2019 OD OS Quality Good Good Interpretation Borderline S 2018 Borderline S 2018 Change Baseline Baseline Optos Disc Photo Interpretation Date performed: 03/2018 OD OS Quality Good Good Hemorrhage No No PPA Yes Yes Rim Assessment 0.5 0.45 Progression Baseline Baseline Assessment & Plan: Encounter Diagnosis and Orders ICD-10-CM 1. Narrow angle glaucoma suspect of both eyes H40.033 SUN VISUAL FIELD - OU - BOTH EYES OCT, OPTIC NERVE - OU - BOTH EYES SUN VISUAL FIELD - OU - BOTH EYES OCT, OPTIC NERVE - OU - BOTH EYES 2. Age-related nuclear cataract of both eyes H25.13 3. Diabetes mellitus type 2 without retinopathy (HCCode) E11.9 1. Narrow Angle Glaucoma Suspect - TMax 22, 23 - no family history - nerve healthy - HVF not glaucomatous - narrowing angle but not occludable - IOP lower today Risks/benefits/alternatives discussed with patient at length regarding various o ptions: 1. Observation/Do nothing more- risk angle closure lose vision, go blind, irreve rsible 2. Drops: start IOP Lowering drops 3. Laser in Clinic: LPI 4. Surgery in Operating Room: CEIOLy Patient understands that he/she risks further permanent blindness due to his/her glaucoma, especially if he/she is not compliant with treatment and follow up Angle Closure Precautions Patient elects to continue to observe 2. DM II without retinopathy - Importance of strict blood sugar, blood pressure and lipid control discussed - Importance of follow up with PCP and Endocrinology for management of Diabetes Mellitus discussed - Management of Diabetes Mellitus per PCP and Endocrinology (Dr. Cardenas and Dr. Hutchinson) 3. Cataract OU - progressive - in the setting of narrow angle, recommend earlier CEIOL - observe The patient is asked to return in/for 6 months IOP check, gonio HVF and Optos The history, exam, assessment and plan of the learner, if present, have been rev iewed and I personally examined the patient. I have reviewed the PMH, SH, FHX, ROS, MEDS, ALLERGIES and HPI, and have updated the computerized patient record appropriately. Risks, benefits, and alternatives of treatment discussed with the patient. All q uestions regarding diagnosis and treatment answered to satisfaction. Lola Montenegro M.D. 02/23/2019 [facility] documented in this encounter Plan of Treatment Care Team Description Date Type Specialty Junior Hutchinson MD [address] [facility] [address] [place] [address] 04/01/2019 Office Visit Endocrinology Renae Lakhani RN 05/03/2019 Office Visit General Internal Medicine Priscilla Travis MD [address] [facility] [address] [place] [address] 06/08/2019 Office Visit Sleep Center Health Maintenance Due Date Last Done Comments [...] history exists documented as of this encounter Procedures Comments Procedure Name Priority Date/Time Associated Diagnosis OCT, OPTIC NERVE - OU - Routine 02/23/2019 Narrow angle glaucoma BOTH EYES 10:58 AM CDT suspect of both eyes SUN VISUAL FIELD - Routine 02/23/2019 Narrow angle glaucoma OU - BOTH EYES 10:10 AM CDT suspect of both eyes documented in this encounter Results * OCT, OPTIC NERVE - OU - BOTH EYES (02/23/2019 10:58 AM CDT) Specimen Narrative Performed At OCT Glaucoma Interpretation 02/2019 OD OS Quality Good Good Interpretation Borderline S 2018 Borderline S 2019 Change Baseline Baseline * SUN VISUAL FIELD - OU - BOTH EYES (02/23/2019 10:10 AM CDT) Specimen Narrative Performed At VF Interpretation 02/2019 OD OS Reliability Good Good Defect Scatter 2018 MD: +0.93 Scatter 2018 MD: +0.15 Progression Stable 2017 MD: -0.88 Stable 2017 MD: -0.37 documented in this encounter Visit Diagnoses Diagnosis Narrow angle glaucoma suspect of both eyes - Primary Age-related nuclear cataract of both eyes Senile nuclear sclerosis Diabetes mellitus type 2 without retinopathy (HCCode) Type II or unspecified type diabetes mellitus without mention of complication, not stated as uncontrolled documented in this encounter Insurance Type Payer Benefit Subscriber ID Effective Phone Address Plan / Dates Group Medicare MEDICARE MEDICARE xxxxxxxxxxx 2013- [address] Present [id number] [place] [address] documented as of this encounter Advance Directives Patient Gamewell Operator Explanation Type Date Recorded Advance Directives and Living Will Power of Mail Handlers Supervisor
--- OUTSIDE RECORDS SUMMARY | 2019-03-29 19:01 | XMS REPORT ---
Author Author [facility] Address Unknown Phone Unavailable Care Team Providers Care Head Animal Trainer Name Role Phone NANDINI FROST Unavailable Unavailable MELA CHELSEY STANTON Unavailable Unavailable ALFA BRIGGSDEVIN DEJUAN LUBIN Unavailable Unavailable Problems This patient has no known problems. Allergies, Adverse Reactions, Alerts This patient has no known allergies or adverse reactions. Medications This patient has no known medications. Results Test Description Test Time Test Comments Text Results Atomic Results Result Comments TISSUE EXAM 2019-03-13 15:44:00 Surgical Pathology Report Case: [id number] Authorizing Provider: Casper Frost MD Collected: 03/09/2019 1223 Ord ering Location: [facility] ENDOSCOPY Received: 03/09/2019 1512 SERVICES Pathologist: Anjana Salinas MD Specimen: Polyp, Colon - Sigmoid, sigmoid polyp Signing Pathologist Direct Phone Line: [phone] signed by Anjana Salinas MD on 03/13/2019 at 3:44 PMLARGE BOWEL, SIGMOID, POLYPECTOMY: - HYPERPLASTIC POLYP /[id number] diagnosis: Screen for colon cancer. This case has one part. A. Received in formalin labeled with the patient's name, accession number and "sigmoid colon polyp" is a 0.5 x 0.2 x 0.2 cm fregoso-pink tissue fragment which is filtered and submitted in toto in A1. PA/bc No dysplasia or malignancy is seen. RHEUMATOID FACTOR AB, REFLEX TO TITER 2017-08-02 03:37:00 RHEUMATOID FACTOR (BRANDI) (test tcwa=573) Negative ANTI-NUCLEAR ANTIBODY (NAKUL)2017-08-01 14:24:00* Test Item Value Reference Range Comments ANTI-NUCLEAR ANTIBODY (NAKUL) (BRANDI) (test esnm=211) Positive Negative NAKUL TITER AND [id number] 14:24:00* Test Item Value Reference Range Comments NAKUL TITER (BEAKER) (test hprh=8675) :160 NAKUL PATTERN (BEAKER) (test zmbh=7666) Homogeneous POCT-GLUCOSE [id number] 07:52:00* Test Item Value Reference Range Comments POC-GLUCOSE METER (BEAKER) (test mnzj=0951) 199 mg/dL 70-110 TESTED AT [facility] [address] [address] BASIC METABOLIC [id number] 06:23:00* Test Item Value Reference Range Comments SODIUM (BEAKER) (test ouaa=906) 135 meq/L 136-145 POTASSIUM (BEAKER) (test nach=796) 4.0 meq/L 3.5-5.1 CHLORIDE (BEAKER) (test ekgy=510) 101 meq/L 98-107 CO2 (BEAKER) (test yzbg=636) 24 meq/L 22-29 BLOOD UREA NITROGEN (BEAKER) (test tmmg=818) 16 mg/dL 7-21 CREATININE (BEAKER) (test ymiz=492) 0.87 mg/dL 0.57-1.25 GLUCOSE RANDOM (BEAKER) (test pyrm=583) 237 mg/dL 70-105 CALCIUM (BEAKER) (test qnok=842) 9.2 mg/dL 8.4-10.2 EGFR (BEAKER) (test fdpe=7696) 89 mL/min/1.73 sq m ESTIMATED GFR IS NOT ACCURATE CREATININE CLEARANCE IN PREDICTING GLOMERULAR FILTRATION RATE. ESTIMATED GFR IS NOT APPLICABLE FOR DIALYSIS PATIENTS. CBC W/PLT COUNT & AUTO [id number] 05:38:00* Test Item Value Reference Range Comments WHITE BLOOD CELL COUNT (BEAKER) (test akig=299) 8.3 K/ L 3.5-10.5 RED BLOOD CELL COUNT (BEAKER) (test vgpy=910) 5.56 M/ L 4.63-6.08 HEMOGLOBIN (BEAKER) (test ngdk=607) 15.9 GM/DL 13.7-17.5 HEMATOCRIT (BEAKER) (test lkxe=219) 47.8 % 40.1-51.0 MEAN CORPUSCULAR VOLUME (BEAKER) (test orjt=386) 86.0 fL 79.0-92.2 MEAN CORPUSCULAR HEMOGLOBIN (BEAKER) (test bmqu=230) 28.6 pg 25.7-32.2 MEAN CORPUSCULAR HEMOGLOBIN CONC (BEAKER) (test vnkb=011) 33.3 GM/DL 32.3-36.5 RED CELL DISTRIBUTION WIDTH (BEAKER) (test nsfl=152) 12.7 % 11.6-14.4 PLATELET COUNT (BEAKER) (test wbyv=823) 230 K/CU MM 150-450 MEAN PLATELET VOLUME (BEAKER) (test rbfx=213) 10.8 fL 9.4-12.4 NUCLEATED RED BLOOD CELLS (BEAKER) (test upcr=281) 0 /100 WBC 0-0 NEUTROPHILS RELATIVE PERCENT (BEAKER) (test yuri=996) 61 % LYMPHOCYTES RELATIVE PERCENT (BEAKER) (test wwej=219) 28 % MONOCYTES RELATIVE PERCENT (BEAKER) (test ppeq=165) 7 % EOSINOPHILS RELATIVE PERCENT (BEAKER) (test pyls=141) 4 % BASOPHILS RELATIVE PERCENT (BEAKER) (test tksm=176) 1 % NEUTROPHILS ABSOLUTE COUNT (BEAKER) (test lndm=847) 5.06 K/ L 1.78-5.38 LYMPHOCYTES ABSOLUTE COUNT (BEAKER) (test ksmr=748) 2.32 K/ L 1.32-3.57 MONOCYTES ABSOLUTE COUNT (BEAKER) (test aigj=280) 0.54 K/ L 0.30-0.82 EOSINOPHILS ABSOLUTE COUNT (BEAKER) (test kavo=332) 0.30 K/ L 0.04-0.54 BASOPHILS ABSOLUTE COUNT (BEAKER) (test mobz=846) 0.07 K/ L 0.01-0.08 IMMATURE GRANULOCYTES-RELATIVE PERCENT (BEAKER) (test efzw=7458) 1 % 0-1 POCT-GLUCOSE [id number] 22:13:00* Test Item Value Reference Range Comments POC-GLUCOSE METER (BEAKER) (test gebe=8650) 222 mg/dL 70-110 TESTED AT [facility] [address] [address] POCT-GLUCOSE [id number] 17:56:00* Test Item Value Reference Range Comments POC-GLUCOSE METER (BEAKER) (test jcql=5836) 188 mg/dL 70-110 TESTED AT [facility] [address] [address] SEDIMENTATION [id number] 13:02:00* Test Item Value Reference Range Comments SEDIMENTATION RATE, ERYTHROCYTE (BEAKER) (test ztrf=832) 16 mm/HR 0-20 POCT-GLUCOSE [id number] 12:52:00* Test Item Value Reference Range Comments POC-GLUCOSE METER (BEAKER) (test xnon=6389) 215 mg/dL 70-110 TESTED AT [facility] [address] [address] HEMOGLOBIN [id number] 12:51:00* Test Item Value Reference Range Comments HEMOGLOBIN A1C (BEAKER) (test jdhy=186) 8.9 % 4.3-6.1 TSH/FREE T4 IF [id number] 12:22:00* Test Item Value Reference Range Comments THYROID STIMULATING HORMONE (BEAKER) (test loms=762) 4.21 uIU/mL 0.35-4.94 HEPATIC FUNCTION [id number] 11:39:00* Test Item Value Reference Range Comments TOTAL PROTEIN (BEAKER) (test kzon=469) 7.2 gm/dL 6.0-8.3 ALBUMIN (BEAKER) (test urlj=1848) 4.2 g/dL 3.5-5.0 BILIRUBIN TOTAL (BEAKER) (test zgyj=993) 0.3 mg/dL 0.2-1.2 BILIRUBIN DIRECT (BEAKER) (test zgma=789) 0.1 mg/dL 0.1-0.5 ALKALINE PHOSPHATASE (BEAKER) (test xmye=218) 105 U/L 40-150 AST (SGOT) (BEAKER) (test urgl=674) 13 U/L 5-34 ALT (SGPT) (BEAKER) (test yefx=635) 10 U/L 6-55 CREATINE KINASE (CK)2017-07-31 11:39:00* Test Item Value Reference Range Comments CREATINE KINASE TOTAL (BEAKER) (test fqqj=577) 46 U/L 29-200 C-REACTIVE [id number] 11:39:00* Test Item Value Reference Range Comments C-REACTIVE PROTEIN (BEAKER) (test crcj=882) 0.19 mg/dL 0.00-0.50 EEG AWAKE AND [id number] 11:28:00Reason for exam:->FALLDate(s) of EE07/31/2017DATE OF REPORT: 07/31/2017ACC: [id number] Number: [id number] Location: Inpatient RoomStart time: 10:04Stop time: 10:25ICD-10: R56.9, R55CPT Code: 03485 HISTORY: 62 y/o man with a past medical history of headaches, DM, HTN, HLD, CAD s/p PCI, MANISH on CPAP presents with an episode of passing out with 1 minute before able to respond MEDICATIONS THAT COULD AFFECT EEG: escitalopram TECHNICAL SUMMARY: This is a digital video-EEG recorded with 32 input channels reviewed with bipolar and referential montages using the modified combinatorial system nomenclature. DESCRIPTION OF RECORD: During the maximally alert state a 40 microvolt, 9.5-10 Hz posterior dominant rhythm was seen that was symmetric, reactive to eye opening and well regulated. More anteriorly, low voltage fro ntocentral beta predominated. Drowsiness was characterized by alpha attenuation and increased frontocentral theta. Stage 2 sleep was not reached. SIGNIFICANT VIDEO EVENTS: None SIGNIFICANT ELECTROCARDIOGRAM EVENTS: None HV: Hyperventila tion was not performed. PHOTIC STIMULATION: Photic stimulation was done from 3 -30 Hz. Symmetric photic driving was seen at 9-21 Hz. Photoparoxysmal responses were absent. IMPRESSION: Normal Awake and Drowsy EEG CLINICAL CORRELATION: An EEG without epileptiform discharges does not exclude the possibility of epilepsy . If the clinical suspicion of epilepsy remains, consider additional EEG record ings. Renae Jefferson MDNeurophysiology Fellow Reymundo Jones M.D., F ACNS, FAAN, FAESProfessor of Neurology, [facility] HospitalDiguthrie, [facility] Epilepsy [facility] Neurophysiology Lab -GLUCOSE [id number] 11:08:00* Test Item Value Reference Range Comments POC-GLUCOSE METER (BEAKER) (test ibme=7284) 271 mg/dL 70-110 TESTED AT [address] [address] POCT-GLUCOSE [id number] 07:29:00* Test Item Value Reference Range Comments POC-GLUCOSE METER (BEAKER) (test dvjx=6570) 287 mg/dL 70-110 TESTED AT [address] [address] BASIC METABOLIC [id number] 06:09:00* Test Item Value Reference Range Comments SODIUM (BEAKER) (test eyhm=809) 135 meq/L 136-145 POTASSIUM (BEAKER) (test futu=597) 3.8 meq/L 3.5-5.1 CHLORIDE (BEAKER) (test iuzw=709) 103 meq/L 98-107 CO2 (BEAKER) (test exly=815) 23 meq/L 22-29 BLOOD UREA NITROGEN (BEAKER) (test tcvg=300) 14 mg/dL 7-21 CREATININE (BEAKER) (test pimb=949) 0.80 mg/dL 0.57-1.25 GLUCOSE RANDOM (BEAKER) (test coiw=311) 207 mg/dL 70-105 CALCIUM (BEAKER) (test wutq=250) 8.7 mg/dL 8.4-10.2 EGFR (BEAKER) (test xjix=3710) 98 mL/min/1.73 sq m ESTIMATED GFR IS NOT ACCURATE CREATININE CLEARANCE IN PREDICTING GLOMERULAR FILTRATION RATE. ESTIMATED GFR IS NOT APPLICABLE FOR DIALYSIS PATIENTS. CBC W/PLT COUNT & AUTO [id number] 05:16:00* Test Item Value Reference Range Comments WHITE BLOOD CELL COUNT (BEAKER) (test rxsj=154) 6.7 K/ L 3.5-10.5 RED BLOOD CELL COUNT (BEAKER) (test cvfc=542) 5.14 M/ L 4.63-6.08 HEMOGLOBIN (BEAKER) (test tefi=399) 14.7 GM/DL 13.7-17.5 HEMATOCRIT (BEAKER) (test nmxb=421) 45.5 % 40.1-51.0 MEAN CORPUSCULAR VOLUME (BEAKER) (test mphb=324) 88.5 fL 79.0-92.2 MEAN CORPUSCULAR HEMOGLOBIN (BEAKER) (test aeef=910) 28.6 pg 25.7-32.2 MEAN CORPUSCULAR HEMOGLOBIN CONC (BEAKER) (test iahy=484) 32.3 GM/DL 32.3-36.5 RED CELL DISTRIBUTION WIDTH (BEAKER) (test kxhy=422) 12.9 % 11.6-14.4 PLATELET COUNT (BEAKER) (test xqzr=806) 223 K/CU MM 150-450 MEAN PLATELET VOLUME (BEAKER) (test gaok=009) 10.8 fL 9.4-12.4 NUCLEATED RED BLOOD CELLS (BEAKER) (test zslo=787) 0 /100 WBC 0-0 NEUTROPHILS RELATIVE PERCENT (BEAKER) (test pwwu=557) 51 % LYMPHOCYTES RELATIVE PERCENT (BEAKER) (test hzkx=373) 36 % MONOCYTES RELATIVE PERCENT (BEAKER) (test ajwy=457) 8 % EOSINOPHILS RELATIVE PERCENT (BEAKER) (test mwdu=757) 5 % BASOPHILS RELATIVE PERCENT (BEAKER) (test fnkz=548) 1 % NEUTROPHILS ABSOLUTE COUNT (BEAKER) (test povf=486) 3.37 K/ L 1.78-5.38 LYMPHOCYTES ABSOLUTE COUNT (BEAKER) (test bccu=306) 2.37 K/ L 1.32-3.57 MONOCYTES ABSOLUTE COUNT (BEAKER) (test nzlq=435) 0.51 K/ L 0.30-0.82 EOSINOPHILS ABSOLUTE COUNT (BEAKER) (test ypta=035) 0.31 K/ L 0.04-0.54 BASOPHILS ABSOLUTE COUNT (BEAKER) (test uvbi=041) 0.08 K/ L 0.01-0.08 IMMATURE GRANULOCYTES-RELATIVE PERCENT (BEAKER) (test iiqk=6332) 0 % 0-1 POCT-GLUCOSE [id number] 22:36:00* Test Item Value Reference Range Comments POC-GLUCOSE METER (BEAKER) (test jkgz=8891) 252 mg/dL 70-110 TESTED AT [facility] [address] [address] MR, MRA, BRAIN, WITHOUT [id number] 20:08:00Reason for exam:->Ischemic Stroke EvaluationFINAL REPORT MRA Head Clinical History: Headache, stroke Technique: MRA of the head utilizing 3-D sicq-wu-zwwsiq technique with 3-D reconstructions. Comparison: None Findings: There is no evidence of intracranial aneurysm, focal stenosis, or major branch vessel occlusion. There are bilateral posterior communicating arteries. Impression: No evidence for a major [place] proximal branch vessel occlusion. Signed: Alma Del Valle MDReport Verified Date/Time: 07/30/2017 20:08:19 Reading Location: [facility] Radiology Reading Room , MRA, NECK, WITHOUT IV CONTRAST 2017-07-30 19:58:00Reason for exam:->Ischemic Stroke EvaluationFINAL REPORT MRA Neck Clinical History: Ischemic Stroke headache Technique: MRA of the neck utilizing 2-D and 3-D yykf-qv-nsruxc technique, with 3-D reconstructions. Comparison: None Findings: The carotid arteries in the neck are patent including their bifurcations. There is antegrade flow in the vertebral arteries in the neck. Impression: No evidence of hemodynamically sig nificant stenosis in the cervical carotid or vertebral arteries by NASCET criter ia. Signed: Alma Del Valle Verified Date/Time: 07/30/2017 19:58:39 Read ing Location: [facility] Radiology Reading Room , BRAIN, WITHOUT CONTRAST 2017-07-30 19:57:00Reason for exam:->Ischemic Stroke EvaluationFINAL REPORT MRI Brain without contrast Clinical History: Ischemic Stroke headache Technique: MRI of the brain utilizing axial T2, FLAIR, GRE, DWI; sagittal and coronal T1-weighted images. Comparisons: Head CT 07/30/2017 Findings: There is no evidence of acute infarct or hemorrhage. A chronic lacunar infarct of the right thalamus is again seen with hemosiderin staining. There are a few scattered nonspecific foci of FLAIR signal abnormality in the subcortical and periventricular white matter. There is mild generalized parenchymal volume loss without hydrocephalus, midline shift, or apparent mass effect. There are no extra-axial fluid collections. The craniocervical junction is preserved. The major intracranial flow-voids appear patent. IMPRESSION: No evidence of acute infarct, hemorrhage, or hydrocephalus. Chronic lacunar infarct right thalamus w ith remote hemorrhage. Signed: Alma Del Valle Verified Date/Time: 07/30 19:57:41 Reading Location: [facility] Radiology Reading Room Elect ronically signed by: AMLA DEL VALLE M.D. on 07/30/2017 07:[address], MAXILLOFACIAL AREA, WO [id number] 14:48:00Reason for exam:->FALLWhat is the patient's sedation requirement?->No SedationFINAL REPORT Clinical History: Maxface trauma bluntFALL Technique: Contiguous axial, sagittal, and coronal images through the maxillofacial sinuses without contrast. This exam was performed according to the departmental dose optimization program which includes automated exposure control, adjustment of the mA and/or kV according to the patient size, and/or use of an iterative reconstruction technique. Comparisons: None Findings: There is no facial fracture or retro- orbital hemorrhage. The paranasal sinuses are well aerated. The osteomeatal units are clear. The retro-orbital soft tissues and visualized brain parenchyma do not demonstrate acute abnormality. Impression: No facial fracture or retro- orbital hemorrhage. Signed: Alma Del Valle MDReport Verified Date/Time: 14:48:07 Reading Location: [facility] Radiology Reading Room El ectronically signed by: ALMA DEL VALLE M.D. on 07/30/2017 02:48 PM B-TYPE NATRIURETIC FACTOR (BNP)2017-07-30 14:40:00* Test Item Value Reference Range Comments B-TYPE NATRIURETIC PEPTIDE (BEAKER) (test eicn=508) 16 pg/mL 0-100 CREATINE KINASE (CK), TOTAL AND [id number] 14:39:00* Test Item Value Reference Range Comments CREATINE KINASE TOTAL (BEAKER) (test vojc=523) 60 U/L 29-200 CREATINE KINASE-MB (BEAKER) (test isdp=285) 1.5 ng/mL 0.0-6.6 CREATINE KINASE-MB INDEX (BEAKER) (test eurf=507) 2.5 % CK-MB Reference Range:<6.7 Normal6.7-10.0 Borderline>10.0 Abnormal TROPONIN [id number] 14:39:00* Test Item Value Reference Range Comments TROPONIN I (BEAKER) (test dfey=283) < ng/mL 0.00-0.03 Troponin I (TnI) levels must be interpreted in the context of the presenting sym ptoms and the clinical findings. Elevated TnI levels indicate myocardial damage, but are not specific for ischemic heart disease. Elevated TnI levels are seen in patients with other cardiac conditions (including myocarditis and congestive h eart failure), and slight TnI elevations occur in patients with other conditions , including sepsis, renal failure, acidosis, acute neurological disease, and per sistent tachyarrhythmia.BASIC METABOLIC [id number] 14:33:00* Test Item Value Reference Range Comments SODIUM (BEAKER) (test koci=901) 141 meq/L 136-145 POTASSIUM (BEAKER) (test luqr=480) 4.1 meq/L 3.5-5.1 Specimen slightly hemolyzed CHLORIDE (BEAKER) (test emtz=783) 106 meq/L 98-107 CO2 (BEAKER) (test fcjs=787) 24 meq/L 22-29 BLOOD UREA NITROGEN (BEAKER) (test czgs=695) 17 mg/dL 7-21 CREATININE (BEAKER) (test buwc=603) 0.88 mg/dL 0.57-1.25 Specimen slightly hemolyzed GLUCOSE RANDOM (BEAKER) (test ddjz=692) 216 mg/dL 70-105 CALCIUM (BEAKER) (test kmsm=018) 9.7 mg/dL 8.4-10.2 EGFR (BEAKER) (test mjhg=8785) 88 mL/min/1.73 sq m ESTIMATED GFR IS NOT ACCURATE CREATININE CLEARANCE IN PREDICTING GLOMERULAR FILTRATION RATE. ESTIMATED GFR IS NOT APPLICABLE FOR DIALYSIS PATIENTS. [id number] 14:33:00* Test Item Value Reference Range Comments D-DIMER QUANTITATIVE (BEAKER) (test oqvo=469) < MG/L FEU <0.50 Intended Use: The D-Dimer Assay can be used to aid in the diagnosis of Deep Vein Thrombosis (DVT) and Pulmonary Embolism Disease (PED).In patients with low pre- test probability, various studies concerning STA Liatest D-dimer test have repor faheem that with a cutoff value of 0.50 MG/L FEU, the Negative Predictive Value (HORSE STUD MANAGER V) regarding the exclusion of thrombosis is within 95-100% range.CT, BRAIN, WITHOUT [id number] 14:27:00Reason for exam:->FALLWhat is the patient's sedation requirement?->No SedationFINAL REPORT CT Head without contrast CLINICAL HISTORY: Decreased alertnessFALL TECHNIQUE: Contiguous axial images through the head without contrast. This exam was performed according to the departmental dose optimization program which includes automated exposure control, adjustment of the mA and/or kV according to the patient size, and/or use of an iterative reconstruction technique. COMPARISON: None FINDINGS: There is no evidence of skull fracture or intracranial hemorrhage. There is a chronic lacunar infarct of the right thalamus. There is mild generalized sulcal prominence without hydrocephalus, midline shift, or apparent mass effect. There are atherosclerotic calcifications of the intracranial circulation. The paranasal sinuses are well-aerated. IMPRESSION: No evidence of skull fracture or intracranial hemorrhage. Chronic lacunar infarct right thalamus. Signed: Alma Del Valle MDReport Verified Date/Time: 07/30/2017 14:27:51 Reading Location: [facility] Radiology Reading Room W/PLT COUNT & AUTO [id number] 14:11:00* Test Item Value Reference Range Comments WHITE BLOOD CELL COUNT (BEAKER) (test hwbc=796) 8.0 K/ L 3.5-10.5 RED BLOOD CELL COUNT (BEAKER) (test glul=847) 5.22 M/ L 4.63-6.08 HEMOGLOBIN (BEAKER) (test bgmy=294) 15.3 GM/DL 13.7-17.5 HEMATOCRIT (BEAKER) (test dnuq=352) 46.1 % 40.1-51.0 MEAN CORPUSCULAR VOLUME (BEAKER) (test apea=236) 88.3 fL 79.0-92.2 MEAN CORPUSCULAR HEMOGLOBIN (BEAKER) (test zzhc=860) 29.3 pg 25.7-32.2 MEAN CORPUSCULAR HEMOGLOBIN CONC (BEAKER) (test ylcn=161) 33.2 GM/DL 32.3-36.5 RED CELL DISTRIBUTION WIDTH (BEAKER) (test wouf=451) 13.2 % 11.6-14.4 PLATELET COUNT (BEAKER) (test fjzr=324) 259 K/CU MM 150-450 MEAN PLATELET VOLUME (BEAKER) (test ufhl=957) 10.8 fL 9.4-12.4 NUCLEATED RED BLOOD CELLS (BEAKER) (test ulko=647) 0 /100 WBC 0-0 NEUTROPHILS RELATIVE PERCENT (BEAKER) (test ijsq=336) 61 % LYMPHOCYTES RELATIVE PERCENT (BEAKER) (test zvym=223) 28 % MONOCYTES RELATIVE PERCENT (BEAKER) (test bfxo=381) 6 % EOSINOPHILS RELATIVE PERCENT (BEAKER) (test qmil=861) 3 % BASOPHILS RELATIVE PERCENT (BEAKER) (test hjaf=644) 1 % NEUTROPHILS ABSOLUTE COUNT (BEAKER) (test ieyn=784) 4.89 K/ L 1.78-5.38 LYMPHOCYTES ABSOLUTE COUNT (BEAKER) (test bpta=831) 2.26 K/ L 1.32-3.57 MONOCYTES ABSOLUTE COUNT (BEAKER) (test pnhk=576) 0.51 K/ L 0.30-0.82 EOSINOPHILS ABSOLUTE COUNT (BEAKER) (test lnxp=463) 0.22 K/ L 0.04-0.54 BASOPHILS ABSOLUTE COUNT (BEAKER) (test ojqv=396) 0.08 K/ L 0.01-0.08 IMMATURE GRANULOCYTES-RELATIVE PERCENT (BEAKER) (test llnf=0929) 0 % 0-1 POCT-GLUCOSE [id number] 13:21:00* Test Item Value Reference Range Comments POC-GLUCOSE METER (BEAKER) (test ppdx=3071) 164 mg/dL 70-110 TESTED AT [facility] [address] [facility] [address]
[2019-03-29] MEDS ORDERED: LIDOCAINE 1% W/EPINEPHRINE 20 ML VIAL ONE (19:22)
[2019-03-29] MEDS ORDERED: LIDOCAINE 1% W/EPINEPHRINE 20 ML VIAL INJ ONE (19:30)
[2019-03-29] MEDS ORDERED: TRIMETHOPRIM/SULFAMETHOXAZOLE 160-800 MG TAB PO ONE (19:45)
[2019-03-29] MEDS ORDERED: HYDROCODONE/APAP 5MG-325MG TAB PO ONE (19:45)
== END 2019-03-29 19:50 | disposition home or self-care (01) ==
LOC: FSED 18:57
DX: L02.414 Cutaneous abscess of left upper limb (principal)
CPT/HCPCS: 99283

== ENCOUNTER 2020-11-26 10:16 | Emergency (ER) | payer OTHER, MEDICARE ==
[~2020-11-26] VITALS: Ht 172.7 cm; Wt 95.7 kg
[2020-11-26] MEDS ORDERED: KETOROLAC TROMETHAMINE 60 MG/2 ML VIAL IM ONE (10:45)
[2020-11-26] MEDS ORDERED: KETOROLAC TROMETHAMINE 30 MG/ML VIAL ONE (11:01)
== END 2020-11-26 12:10 | disposition home or self-care (01) ==
LOC: FSED 10:40
DX: S42.012A Anterior displaced fracture of sternal end of left clavicle, initial encounter for closed fracture (principal); S42.302A Unspecified fracture of shaft of humerus, left arm, initial encounter for closed fracture; W01.0XXA Fall on same level from slipping, tripping and stumbling without subsequent striking against object, initial encounter; Y93.89 Activity, other specified; Y92.838 Other recreation area as the place of occurrence of the external cause; I10 Essential (primary) hypertension; E11.9 Type 2 diabetes mellitus without complications; I25.10 Atherosclerotic heart disease of native coronary artery without angina pectoris; Z95.5 Presence of coronary angioplasty implant and graft; E03.9 Hypothyroidism, unspecified; E78.5 Hyperlipidemia, unspecified
CPT/HCPCS: 71250; 73060; 99284; J1885